=== PATIENT | male | born 1970 | race Caucasian/White ===

== ENCOUNTER 2024-02-07 16:06 | Observation (INO) | payer BC, SELFPAY ==
[2024-02-07] VITALS (11 sets, daily range): BP systolic 120–141; BP diastolic 65–90; BMI 34.7
[2024-02-07 10:43] LABS: % Basophils 0.8 % (0-2); % Eosinophils 2.5 % (0-6); % Immature Granulocytes 0.3 % (0-0.5); % Lymphocytes 30.8 % (20.5-51.1); % Monocytes 8.6 % (1.7-9.3); Absolute Basophils 0.1 10^3/uL (0-0.2); Absolute Eosinophils 0.2 10^3/uL (0-0.7); Absolute Lymphocytes 1.8 10^3/uL (1.2-3.4); Absolute Monocytes 0.5 10^3/uL (0.1-0.6); Absolute Neutrophils 3.4 10^3/uL (1.4-6.5); Hematocrit 40.4 % (39.0-52.0); Hemoglobin 13.7 g/dL (13.0-18.0); Mean Corp Hgb Conc. 33.9 g/dL (33.0-37.0); Mean Corpuscular Hgb 29.6 pg (27.0-31.0); Mean Corpuscular Volume 87.3 fL (80.0-94.0); Mean Platelet Volume 10.2 fL (7.4-10.4); Nucleated Red Blood Cells % 0 % (-); Platelet Count 273 10^3/uL (130-400); Red Blood Cell Count 4.63 10^6/uL (4.70-6.10); Red Cell Dist. Width 13.6 % (11.5-14.5); White Blood Cell Count 5.9 10^3/uL (4.8-10.8)
[2024-02-07 10:52] LABS: ALT (SGPT) 29 U/L (0-50); AST (SGOT) 27 U/L (17-59); Albumin 4.7 g/dl (3.5-5.0); Alkaline Phosphatase 76 U/L (38-126); Blood Urea Nitrogen 17 mg/dl (9-20); Calcium 9.6 mg/dl (8.4-10.2); Carbon Dioxide 29 mmol/L (22-30); Chloride 103 mmol/L (98-107); Estimated Creatinine Clearance > 125 ml/min; Glucose 129 mg/dl (70-99); Potassium 4.5 mmol/L (3.5-5.1); Sodium 140 mmol/L (135-145); Total Bilirubin 1.1 mg/dl (0.2-1.3); Total Protein 7.2 g/dl (6.3-8.2); eGFR > 60.00
--- NOTE | 2024-02-07 10:52 | ED.GENMED ---
History of Present Illness
General
Chief Complaint: Chest Pain
Source: patient
Exam Limitations: none
Time Seen by Provider: 02/07/24 10:32
Nursing documentation reviewed up to this point in time: agreed with
History of Present Illness
History of Present Illness:
Patient with history of hypertension, hypercholesterolemia, and paroxysmal atrial fibrillation on Eliquis, presents to ED secondary to persistent chest pain upon waking up this morning along with shortness of breath. Chest pain described as 'sharp
twinge', nonradiating, associated shortness of breath, without any alleviating or exacerbating factors. Of note, patient has had exertional chest pain over the past 3 weeks. Patient has seen his creel selector and recently had an outpatient stress
test which was 'abnormal'. Patient is scheduled for diagnostic cardiac catheterization at [facility] on Monday. Denies recent travel or surgery. Denies recent illness. There is family history of heart disease. Patient has not taken his
Eliquis this morning.
Past History
Past History
ED Past Medical History: Arrthythmia (PVCs), HTN, Hypercholesterolemia, Psychiatric (Anxiety) and Other (Kidney stones, chronic sinusitis, diverticulosis)
ED Past Surgical History: Urological
Social History
Tobacco: Non-smoker
Alcohol: Occasional
Drug: None
Personal:
Living: with family
Employment: Employed
Family History
Family History: Hypertension, CAD (Brother with stents) and Other (Mother with non-Hodgkin's lymphoma)
Review of Systems
Review of Systems
Allergies reviewed?: Yes
All Other Systems: ROS reviewed and negative except as documented in HPI and ROS
Constitutional: Reports no symptoms
Respiratory: Reports trouble breathing
Cardiac: Reports chest pain
ABD/GI: Reports no symptoms; Denies nausea
Musculoskeletal: Reports no symptoms
Skin: Reports no symptoms
Neurological: Reports no symptoms
Phy Exam
Physical Exam
Physical Exam:
Physical Exam
General: mild distress, not acutely ill. afebrile
Head: nc/at. eomi
Neck: supple. no meningeal signs.
Heart: s1/s2 regular rate and rhythm, no murmur. equal radial pulses.
Lungs: no acute respiratory distress. clear bilaterally
Abdomen: normal bowel sounds. not tender.
Neuro: alert and oriented. no focal neurological deficits
Skin: no rash
Psychiatric: well kept. interactive and cooperative
Extremities: no edema. no calf tenderness.
Scores
Heart Score for Chest Pain Patients
STEMI patient?: No
History: Moderately Suspicious
ECG: Normal
Age: >45 - <65 years
Risk Factors: >/= 3 Risk Factors or History of CAD
Troponin: </= Normal Limit
Heart Score for Chest Pain Patients: 4
Heart Score Risk: 20.3% MACE over next 6 weeks
Course
Orders/Labs/Results
Orders:
Orders
02/07/24 10:00
Electrocardiogram (*1) Urgent
Reason for Study: Chest Pain
02/07/24 10:01
EKG- Treatment ONCE
02/07/24 10:20
Complete Blood Count/With Diff Urgent
Glycohemoglobin (HgbA1c) Urgent
TSH Reflex To Free T4 Urgent
Comment: ADD ON
Troponin I Urgent
02/07/24 10:22
Comprehensive Metabolic Panel Urgent
Magnesium Urgent
Comment: ADD ON
02/07/24 10:52
Add On- LAB Urgent
Tests Added?: magnesium, TSH to reflex free T4
CR Chest Portable - 1 View Urgent
Comment:
Reason For Exam: cp/sob
Reason Study Needs to be Portable: Patient Unstable
02/07/24 10:56
Aspirin Chewable [Low Strength Aspirin] 324 mg PO NOW STA
Nitroglycerin Sublingual [Nitrostat (Sublingual)] 0.4 mg SL NOW STA
02/07/24 11:08
CARDIOLOGY CONSULT Urgent
Consulting Provider: Savage Snow
Was physician already notified: Yes
Reason for consult: CP
02/07/24 14:25
Troponin I Urgent
02/07/24 Dinner
Cholesterol Lowering
At Your Request: Full Participation
02/07/24 15:44
Admit/Transfer Patient As Directed
Co-Sign Provider:
Level of Care: Observation services
Assign to:: IVU
Physician / Group: Victor Manuel
Diagnosis: Chest pain
02/07/24 15:47
PRN Pain Medication Management As Directed
May give lesser potent ordered pain med per pt: Yes
preference::
Protocol:: Medication orders for pain may be administered in a
manner that supports deferring to patient preference
when the pt is:
- Requesting an ordered lesser potent pain medication.
Least to most potent pain medications are defined
as: acetaminophen < NSAID < tramadol < opioids
(morphine, oxycodone, hydromorphone).
- Requesting a lesser dose of the same medication IF
ORDERED.
- Requesting a less intrusive route of administration
if both routes are prescribed by the provider (PO <
IV).
02/07/24 15:49
Code Status As Directed
Resuscitation Status: Full Code
02/07/24 16:00
Add On- LAB Routine
Tests Added?: HgbA1c
02/07/24 17:41
Acetaminophen [Tylenol] 650 mg PO Q6HPRN PRN
02/07/24 17:41
CARDIOLOGY CONSULT Routine
Consulting Provider: Savage Snow
Was physician already notified: Yes
Activity As Directed
Activity Level: As Tolerated
DX Deep Vein Thrombosis Video Routine
02/07/24 18:00
Enoxaparin Sodium [Lovenox] 40 mg SC QPM
02/07/24 20:43
Troponin I Q6H
02/07/24 22:00
Alprazolam [Xanax] 1 mg PO HS
Losartan [Cozaar] 50 mg PO HS
NIFEdipine EXTENDED RELEASE [Procardia Xl (Extended Release)] 30 mg PO HS
Propranolol Extended Release [Inderal LA] 120 mg PO HS
Sertraline HCl [Zoloft] 100 mg PO HS
Cpap [RESP] HS
Patient to use own unit?: Yes
02/08/24 03:16
Troponin I Q6H
02/08/24 Breakfast
NPO
Allow oral meds: Yes
Allow clear liquids: Sips of Clears
02/08/24 08:00
naphazoline-pheniramine [Opcon-A] 1 drop BOTH EYES DAILY
Abnormal Lab Results
02/07/24 02/07/24
10:20 10:22
RBC 4.63 L 10^6/uL
(4.70-6.10)
Glucose 129 H mg/dl
(70-99)
Hemoglobin A1c 5.9 H %
(4.0-5.6)
02/07/24 10:20
02/07/24 10:22
Vital Signs
Initial and Last Documented VS:
Initial Vital Signs
Temp Pulse Resp BP Pulse Ox
97.7 F 68 18 133/74 100
02/07/24 10:10 02/07/24 10:10 02/07/24 10:10 02/07/24 10:10 02/07/24 10:10
Last Documented Vital Signs
Temp Pulse Resp BP Pulse Ox
98.3 F 64 20 126/84 99
02/08/24 11:09 02/08/24 14:00 02/08/24 11:09 02/08/24 14:00 02/08/24 11:20
MDM/Problems Addressed
MDM/Problems Addressed:
History and exam concerning for acute coronary syndrome.
Discussed with on-call cardiology, Dr. Snow, who will come and evaluate the patient.
Received stress echo result from primary creel selector's office, which revealed 1mm ST depression during stress test.
Pt evaluated by - recommends hospitalist admission for likely cardiac catherization tomorrow, after Eliquis washout. Does not recommend heparin protocol at this time.
*EKG
Interpreted by ED Provider?: Yes
EKG Intrepretation Date: 02/07/24
Heart Rate: 65
Rate: normal
Rhythm: sinus
Umbarger: normal axis
Interval: normal interval
*Critical Care Note
Total Time (30-74mins, 75-104mins- exclusive of procedures): Not Applicable
ED Attending Note
-
Portions of this chart may have been created with voice recognition software.� Occasional wrong word or��sound alike� substitutions may have occurred due to the inherent limitations of voice recognition software.
Discharge Plan
Departure
Patient Disposition: Admit
Date of Disposition: 02/07/24
Time of Disposition: 15:04
Presentation/result/management discussed w/ accepting MD/DO: Hospitalist
Discharge Problem:
Chest pain
Interventions
Interventions:
*Risk Screen - Suicide Last Done: 02/07/24 18:38
*General Assessment Last Done: 02/07/24 11:09
*Neglect/Abuse Screening Last Done: 02/07/24 11:09
ED- Fall Risk Assessment Last Done: 02/07/24 11:10
*ED COVID-19 Vaccine History Last Done: 02/07/24 17:55
*Nursing Disposition Last Done: 02/07/24 17:49
ED- Cardiac Assessment Last Done: 02/07/24 11:10
Discharge Date and Time
Discharge Date/Time: 02/07/24 17:50
[2024-02-07 11:00] LABS: Troponin I < 0.012 ng/ml
[2024-02-07] MEDS: LOW STRENGTH ASPIRIN 324 MG PO (11:05)
[2024-02-07] MEDS: NITROSTAT (SUBLINGUAL) 0.4 MG SL (11:06)
[2024-02-07 11:32] LABS: Magnesium 2.1 mg/dl (1.6-2.3)
[2024-02-07 12:14] LABS: TSH Reflex To Free T4 1.14 uIU/ml (0.47-4.68)
--- NOTE | 2024-02-07 14:11 | CON.CAR ---
Addendum entered and electronically signed by Savage Snow MD 02/07/24 16:09:
I saw and examined the patient.
The [facility] Internship's note was reviewed and I agree with the note.
Comment:
GEN: No distress, awake, Ox3
HEENT: supple, anicteric, mmm
LUNGS: CTA, no wheezes/rales
CV: Reg, S1/S2, 1/6 syst LSB, no murmur
ABD: soft, BS+, NT/ND
EXT: No edema
NEURO: Gross non-focal
SKIN: No rash
Plan:
53-year-old male with past medical history of hypertension, hyperlipidemia, obesity, proximal atrial fibrillation/PVCs and borderline diabetes presents with chest pains. He is followed by an outside camp manager at [facility]. Today he had
continued episodes of an ache and discomfort in his neck and chest area. It seemed to occur with rest and last for minutes to hours. He last took Eliquis last night. He is very concerned about his pains.
Stress test done at [facility] Sunday 02/04 revealed chest pain with [address] depression at stage III of a Duy protocol.
Troponin is negative x2.
I had a lengthy discussion with him. We agreed to proceed with cardiac cath in AM. Hold Eliquis.
Add ASA, Cont Propranonol and Losartan
Check Lipids
He remains in sinus rhythm.
Original Note:
Consultation
Consultation Request
Date/Time Consultation Performed: 02/07/24
Requesting Provider: Dr. Calvert
Performing Provider: Penny Lemus PA-C for Dr. Snow
Reason for Consultation: CP
Medical History
-
Chief Complaint: CP
History of Present Illness:
Patient is a 53 yo M with PMH of hypertension, hyperlipidemia, obesity, MARK on CPAP, paroxysmal atrial fibrillation on chronic Eliquis, anxiety, PVCs who presented to with complaints of chest pains. He states he has noticed this over the last
several weeks, in addition to increase in his chronic PVC burden. He was seen by his camp manager, Dr. Champion for this and was ordered a stress test which she completed on 02/05/2024. Exercise stress test was abnormal including chest pain with
exercise and [address] depression inferiorly at peak exercise. Due to this patient was referred for cardiac catheterization which was scheduled at [facility] on Sunday 02/11. Patient states then last evening he developed chest
discomfort with some pains in his left arm, and decided to come to [facility] for cardiac catheterization. He also reports over the last several weeks he has been nauseous and belching. He reports the pain comes on randomly. He states it is
located in different spots throughout his chest. He does seem to have a correlation with exertion. He reports some discomfort in his neck, and states last evening he felt as though he had some discomfort in his jaw. He reports his last Eliquis
dose was 02/05 at 11 PM. Of note when last seen in the office, he had complained about some edema on nifedipine which was started approximately 2 months ago. There was a plan to transition him to verapamil, however patient has not done this yet.
Cardiology consulted for evaluation.
PMH:
Abnormal stress test 02/05/24
Hypertension
Hyperlipidemia
Obesity
MARK on CPAP
Paroxysmal atrial fibrillation
Chronic anticoagulation with Eliquis
PVCs
Prediabetes
Anxiety
Family history of CAD
Past Medical History
Past Medical History: Other (in HPI)
Past Surgical History: Other (prior kidney stone removal. rhinoplasty)
Social History
Tobacco: Non-Smoker
Alcohol: None
Personal:
Living: With Family
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
Family History
Family History: CAD (stent in brother at age 55)
Allergies / Home Medications
Allergy/AdvReac Type Severity Reaction Status Date / Time
Sulfa (Sulfonamide Allergy Severe Rash Verified 02/07/24 10:15
Antibiotics)
[Sulfa(Sulfonamide
Antibiotics)]
decongestants Allergy cause Uncoded 02/07/24 10:15
irritability,heart
palpatations
dust Allergy Unknown Uncoded 02/07/24 10:15
pollen Allergy Unknown Uncoded 02/07/24 10:15
ragweed Allergy Unknown Uncoded 02/07/24 10:15
�Medication �Instructions �Recorded �Confirmed �Type
alprazolam 1 mg tablet (Xanax) 1 mg PO HS Sleep 07/02/09 04/12/22 History
simvastatin 20 mg tablet (Zocor) 20 mg PO HS High cholesterol 07/02/09 04/12/22 History
famotidine 20 mg tablet (Pepcid) 20 mg PO BID #20 tabs 04/12/22 Rx
losartan 50 mg tablet 50 mg PO HS Blood pressure 04/12/22 04/12/22 History
propranolol 120 mg capsule,24 120 mg PO HS Blood pressure 04/12/22 04/12/22 History
hr,extended release
sertraline 100 mg tablet 100 mg PO HS Mental Health/Anxiety 04/12/22 04/12/22 History
benzonatate 100 mg capsule 200 mg (2 x 100 mg) PO TID PRN 07/11/22 Rx
cough #6 caps
benzonatate 200 mg capsule 200 mg PO TID PRN cough #6 caps 07/11/22 Rx
methylprednisolone 4 mg tablets in See Rx Instructions PO .COMPLEX 07/08/23 Rx
a dose pack (Medrol (Sylvester)) #21 ea
Review of Systems
-
History Source: Patient
All other systems: Negative unless noted
Physical Exam
Vital Signs
Temp Pulse Resp BP Pulse Ox
97.7 F 77 16 136/65 95
02/07/24 10:10 02/07/24 11:03 02/07/24 11:03 02/07/24 11:11 02/07/24 11:10
Lab Results
02/07/24 10:20
02/07/24 10:22
Troponin I < 0.012 ng/ml 02/07/24 10:20
Physical Exam
General: No Apparent Distress and Comfortable
HEENT: Normocephalic, Anicteric and Moist Mucous Membranes
Respiratory: Clear and Non Labored Respirations
Cardiac: S1/S2 and Regular Rhythm
GI: Soft, Non Tender, Non Distended and Normal Bowel Sounds
Musculoskeletal: No Clubbing, No Cyanosis and Edema (1+ of B/L LE)
Skin: Warm and Dry
Neuro: AO x 3
Impression / Plan
-
Primary Scaler: Dr. Heath Champion of [facility]
Assessment:
Presentation with chest pains
Negative troponin x1
Abnormal treadmill stress test 02/05/24
Hypertension
Hyperlipidemia
Obesity
MARK on CPAP
Paroxysmal atrial fibrillation
Chronic anticoagulation with Eliquis
PVCs
Anxiety
Family history of CAD
ECHO 07/21/2023: EF 60 to 65%, mild concentric LVH, no significant valvular disease
Treadmill stress test 02/05/2024: Abnormal exercise stress test, chest pain with exercise, EKG evidence of ischemia with [address] depression inferiorly at peak exercise
Plan:
-Patient presents with chest pains. He underwent treadmill stress test 02/05/2024 through his camp manager at [facility]. Results obtained and reviewed which was abnormal as above. He was planned for outpatient cath on Sunday 02/11, however
continued with symptoms and came to [facility] for further evaluation
-Initial troponin negative. Check second troponin
-EKG normal sinus rhythm
-Chest x-ray with no acute cardiopulmonary process
-Last dose of Eliquis 11 PM 02/06/2024
-We discussed option for DC from ER if second trop remains negative with continued plan of OP cath Sunday 02/11 as scheduled, however patient would prefer to complete as inpatient due to ongoing symptoms. plan for cath 02/07. N.p.o. after midnight
-Of note he had started nifedipine approximately 2 months ago and complained at last office visit of some increasing lower extremity edema. Plan was to transition him to verapamil 120 mg ER, however patient had not completed that transition yet.
Remains on propranolol, as did not tolerate Coreg. Also on losartan. Of note, he also felt poorly in the past on spironolactone
-d/w ER
Data Reviewed
-
EKG: Tracing Personally Visualized and interpreted
Radiology: Report Reviewed by me
Medical Tests (Nuc Med, Echo etc): Report Reviewed by me
Labs: Labs Reviewed by me
Old Records: Reviewed
[2024-02-07 14:56] LABS: Troponin I < 0.012 ng/ml
--- NOTE | 2024-02-07 15:52 | HPS.HSE ---
Family Physician
-
Family Physician: Clark Thomas
Chief Complaint
-
Chest pain
History of Present Illness
53-year-old male here with exertional chest pain, shortness of breath. Symptoms have been increasing in frequency lately. Had a abnormal stress test on Monday and is scheduled for cardiac catheterization February 11. He decided to come to the
emergency room for further evaluation as he became more concerned due to increased frequency of chest pain.
Gets intermittent exertional pressure sensation in the middle of his chest on exertion with the feeling of having to belch. Does not take any stomach medications. Denies acid reflux symptoms.
Medical History
Past Medical History
Past Medical History: Reports Other
Additional Past Medical History:
Essential hypertension
Hyperlipidemia
Obstructive sleep apnea
Paroxysmal atrial fibrillation
Anxiety disorder
Impaired fasting glucose
PVCs
Obesity
Nephrolithiasis
Past Surgical History: Reports Other
Additional Past Surgical History:
Rhinoplasty
Kidney stone removal
Social History
Tobacco: Non-smoker
Alcohol: None
Drug: None
Personal:
Living: With Family
Employment: Employed
Family History
Family History: CAD
Allergies / Home Medications
Allergies reflects when Allergies were last updated in [facility].
Home Medications with original date entered in [facility]
Allergy/Medication List:
Allergies
Allergy/AdvReac Type Severity Reaction Status Date / Time
Sulfa (Sulfonamide Allergy Severe Rash Verified 02/07/24 10:15
Antibiotics)
[Sulfa(Sulfonamide
Antibiotics)]
decongestants Allergy cause Uncoded 02/07/24 10:15
irritability,heart
palpatations
dust Allergy Unknown Uncoded 02/07/24 10:15
pollen Allergy Unknown Uncoded 02/07/24 10:15
ragweed Allergy Unknown Uncoded 02/07/24 10:15
Home Medications
alprazolam 1 mg tablet (Xanax) 1 mg PO HS Sleep 07/02/09
simvastatin 20 mg tablet (Zocor) 20 mg PO HS High cholesterol 07/02/09
losartan 50 mg tablet 50 mg PO HS Blood pressure 04/12/22
propranolol 120 mg capsule,24 hr,extended release 120 mg PO HS Blood pressure 04/12/22
sertraline 100 mg tablet 100 mg PO HS Mental Health/Anxiety 04/12/22
apixaban 5 mg tablet (Eliquis) 5 mg PO BID 02/07/24
naphazoline 0.65865 %-pheniramine 0.315 % eye drops (Opcon-A) 1 drp BOTH EYES DAILY 02/07/24
nifedipine 30 mg tablet,extended release 24 hr 30 mg PO HS 02/07/24
Review of Systems
-
History Source: Patient
A 12 point ROS was completed and negative except as noted: Yes
Cardiac: Reports Chest Pain
Physical Exam
Vital Signs
Vital Signs
Temp Pulse Resp BP Pulse Ox
97.7 F 77 16 136/65 95
02/07/24 10:10 02/07/24 11:03 02/07/24 11:03 02/07/24 11:11 02/07/24 11:10
Physical Exam
General: Well Developed, Well Nourished, No Apparent Distress and Comfortable
HEENT: NormoCephalic, Anicteric and Moist mucous membranes
Respiratory: Clear
Cardiac: S1/S2 and Regular Rhythm
Breast: Deferred by me
GI: Soft, Non Tender and Non Distended
Genito-urinary: Deferred by me
Musculoskeletal: No Clubbing, No Cyanosis and No Edema
Skin: Warm and Dry
Neuro: AO x 3
Hematologic/Lymphatic: No Lymphadenopathy
Psych: Calm
Laboratory Results
-
02/07/24 10:20
02/07/24 10:22
Laboratory Results
Total Bilirubin 1.1 mg/dl (0.2-1.3) 02/07/24 10:22
AST 27 U/L (17-59) 02/07/24 10:22
ALT 29 U/L (0-50) 02/07/24 10:22
Alkaline Phosphatase 76 U/L (38-126) 02/07/24 10:22
Troponin I < 0.012 ng/ml 02/07/24 14:25
Impression/Plan
-
Chest pain -occasionally atypical. Abnormal stress test on Monday concerning. Admit to IVU. Consult cardiology. N.p.o. after midnight for catheterization tomorrow. Hold Eliquis. Does not take aspirin at home. Aspirin administered in the
emergency room.
Troponin negative x 2, will trend.
Essential hypertension -stable.
Hyperlipidemia -on simvastatin.
Paroxysmal atrial fibrillation -last dose of Eliquis was 02/05 evening. Hold Eliquis for catheterization.
MARK -resume CPAP nightly and with naps. Patient brought in his own unit.
Impaired fasting glucose -check hemoglobin A1c.
Anxiety disorder -on Xanax nightly. Continue sertraline.
Obesity due to excess calories -weight loss encouraged.
Full code
[2024-02-07] MEDS: LOVENOX 40 MG SC (18:23)
--- NOTE | 2024-02-07 18:35 | PTCARENOTE ---
Pt admitted from the ED. Denies any chest pain or sob. OOB independently. Pt states he is for a cardiac cath in the am.
[2024-02-07] MEDS: ZOLOFT 100 MG PO (20:08)
[2024-02-07] MEDS: INDERAL LA 120 MG PO (20:08)
[2024-02-07] MEDS: COZAAR 50 MG PO (20:08)
[2024-02-07] MEDS: PROCARDIA XL (EXTENDED RELEASE) 30 MG PO (20:11)
[2024-02-07] MEDS: XANAX 1 MG PO (20:11)
--- NOTE | 2024-02-07 20:53 | PTCARENOTE ---
Assumed pt care. Walking rounds completed with previous RN. Pt AAO x 4, denies pain/discomfort at time of assessment. Pt on RA, denies SOB/[place], posterior BS clear/equal. NSR with frequent PVC's on telemetry, heart tones normal, no edema noted,
pulses palpable, denies CP. Up ad mery. PIV present & patent. PM medications administered early as requested by pt - pt reports taking medications ~ 1900 at home & feeling palpitations & anxious. See SEP. Troponin drawn & sent.
[2024-02-07 21:12] LABS: Troponin I < 0.012 ng/ml
[2024-02-08] VITALS (11 sets, daily range): BP systolic 92–143; BP diastolic 64–92
--- NOTE | 2024-02-08 03:20 | PTCARENOTE ---
Pt sleeping between care. VS obtained. Labs drawn & sent. No other changes.
[2024-02-08 04:36] LABS: Troponin I < 0.012 ng/ml
[2024-02-08] MEDS: LOW STRENGTH ASPIRIN 81 MG PO (08:47)
[2024-02-08 10:48] LABS: Glycohemoglobin (HgbA1c) 5.9 % (4.0-5.6)
[2024-02-08] MEDS: NSS 1000 IV (11:15)
--- NOTE | 2024-02-08 12:09 | ITS.CL.CATH ---
[employer] - Catheterization
Cardiac Catheterization
Procedure Report:
LEFT HEART CATHETERIZATION
Date of Procedure: February 08, 2024
Referring: Dr. Avinash Snow
PROCEDURES:
1. Left heart catheterization with coronary and single-plane left ventriculography
INDICATION: Chest pain with recent mildly abnormal stress study. Troponin has serially measured below detectable levels.
ACCESS: Right radial artery, 6 Guyanese sheath
HEMODYNAMICS : (mmHg)
AO (s/d) : 142/83, 110
LV (s/d) : 142/15
LVEDP : 31
CORONARY FINDINGS
DOMINANCE: Right
LEFT MAIN: Normal
LEFT ANTERIOR DESCENDING: The LAD arises normally from the left main and runs in the anterior interventricular groove. The LAD approaches but does not reach the apex. Several small to medium caliber diagonal branches arise from the mid LAD and are
widely patent
CIRCUMFLEX: The circumflex is a medium caliber nondominant vessel giving rise to 4 obtuse marginal branches. Only minor irregularities are present
RIGHT CORONARY ARTERY: The right coronary artery is a large-caliber dominant vessel with only minor irregularities over its course. The PDA is large. The posterolateral branch is large
VENTRICULOGRAPHY: Left ventriculography was performed in an SANCHEZ projection. The digital single-plane left ventricular ejection fraction is estimated at 60%
RADIATION SUMMARY: Fluoro Time (min): 3.6, Dose (mGy): 342, DAP (Gy.cm2) : 25.6
Closure Device: TR band
CONCLUSIONS
1. Nonobstructive coronary disease
2. Preserved left-ventricular systolic function with elevated LVEDP to 31 mmHg
RECOMMENDATIONS
1. Continue aggressive risk modification.
2. Resume apixaban this evening
3. Consider cystoscopy changing nifedipine to hydrochlorothiazide. He should have a renal profile checked in 2 to 4 weeks with plan follow-up with his regular manager system
Copy to: Dr. Heath Champion
--- NOTE | 2024-02-08 12:20 | W.PN.HOSP.TC ---
Today's Communication/Plan
-
Discharge
Assessment / Plan
Assessment / Plan
Gen-AAOx3, NAD
HEENT-NC, AT, anicteric, clear oral mm
Neck-supple
CV-reg, no M, +S1/S2
Lungs-clear B/L
Abd-soft, NT, ND
Ext-no edema
Musculoskeletal-no cyanosis, clubbing
Skin-warm and dry
Neuro-grossly non-focal
Psych-calm, cooperative
Non-cardiac chest pain - card cath today without obstructive disease. Suspect GERD or esophageal spasm or other GI cause of his symptoms. Start empiric protonix 40mg daily, patient agrees.
Essential hypertension -stable. Plan to change nifedipine to Verapamil as was previously decided by his outpatient ball mill operator. Patient is sulfa allergic.
Hyperlipidemia -on simvastatin.
Paroxysmal atrial fibrillation -resume Eliquis tonight.
MARK -resume CPAP nightly and with naps. Patient brought in his own unit.
Impaired fasting glucose -hemoglobin A1c 5.9%.
Anxiety disorder -on Xanax nightly. Continue sertraline.
Obesity due to excess calories -weight loss encouraged.
Full code
Dispo - med stable for discharge this afternoon. Outpatient follow up. Discussed with cardiology.
31 min spent in discharge process.
Anticipated Discharge: Today
Subjective/Interval History
-
Date of Service: February 08, 2024
Patient seen/examined, no complaints.
Objective Data
-
Vital Signs:
Vital Signs
Temp Pulse Resp BP Pulse Ox
98.3 F 73 20 116/78 99
02/08/24 11:09 02/08/24 11:15 02/08/24 11:09 02/08/24 11:15 02/08/24 11:20
I&O
02/07/24 02/08/24 02/09/24
06:59 06:59 06:59
Intake Total 400 / 400
Balance 400 / 400
Review of Systems
-
History Source: Patient
All other systems: Reviewed and negative
--- NOTE | 2024-02-08 12:34 | W.DS.TRANS ---
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
-
Discharge Instructions:
Discharge Diagnosis/Procedures Noncardiac chest pain, cardiac cath
Diet Low Cholesterol,Low Fat
Activity As tolerated
Driving Restrictions No driving for 24 hours
Bathing Restrictions None
Instructions:
Stand-Alone Forms: DC Instructions- Cath/EP Lab
Changes to Home Medications: Yes
Discharge Medications:
DC Medications w/original date entered in [facility]
alprazolam 1 mg tablet (Xanax) 1 mg PO HS Sleep 07/02/09
simvastatin 20 mg tablet (Zocor) 20 mg PO HS High cholesterol 07/02/09
losartan 50 mg tablet 50 mg PO HS Blood pressure 04/12/22
propranolol 120 mg capsule,24 hr,extended release 120 mg PO HS Blood pressure 04/12/22
sertraline 100 mg tablet 100 mg PO HS Mental Health/Anxiety 04/12/22
apixaban 5 mg tablet (Eliquis) 5 mg PO BID 02/07/24
naphazoline 0.14897 %-pheniramine 0.315 % eye drops (Opcon-A) 1 drp BOTH EYES DAILY 02/07/24
Home Medication Changes
Stop nifedipine and start verapamil
Pending Results: No
[2024-02-08] MEDS: LASIX 20 MG IV (12:36)
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
--- NOTE | 2024-02-08 17:21 | PTCARENOTE ---
Pt had a cardiac cath via right radial artery. Radial band removed, no sign of bleeding or hematoma. Pt voiding without difficulty, eating, walking independently. Telemetry and IV device removed. Discharge instructions reviewed with pt regarding
activity and driving restrictions, wound care, medications, reporting cares and concerns and follow up appt's. Very good understanding verbalized. Pt escorted out via wheelchair and discharged to home in [employer] transportation.
== END 2024-02-08 16:35 | disposition home or self-care (01) ==
LOC: IVU 16:06
PROVIDERS: Emergency Medicine; Physician Assistant; ADMITTING PHYSICIAN Hospitalist; CONSULT PHYSICIAN Internal Medicine Cardiovascular Disease; EMERGENCY PHYSICIAN Emergency Medicine; FAMILY PHYSICIAN Internal Medicine
DX: R07.89 Other chest pain (principal); R07.2 Precordial pain; R07.9 Chest pain, unspecified; F41.9 Anxiety disorder, unspecified; I10 Essential (primary) hypertension; E78.00 Pure hypercholesterolemia, unspecified; I48.0 Paroxysmal atrial fibrillation; R73.03 Prediabetes; E66.09 Other obesity due to excess calories; I49.3 Ventricular premature depolarization; G47.33 Obstructive sleep apnea (adult) (pediatric); R94.39 Abnormal result of other cardiovascular function study; M79.602 Pain in left arm; R11.0 Nausea; R73.01 Impaired fasting glucose; I25.10 Atherosclerotic heart disease of native coronary artery without angina pectoris; R21 Rash and other nonspecific skin eruption; J30.1 Allergic rhinitis due to pollen; J30.89 Other allergic rhinitis; R06.02 Shortness of breath; Z82.49 Family history of ischemic heart disease and other diseases of the circulatory system; Z79.01 Long term (current) use of anticoagulants; Z80.7 Family history of other malignant neoplasms of lymphoid, hematopoietic and related tissues; Z87.442 Personal history of urinary calculi; Z68.34 Body mass index [BMI] 34.0-34.9, adult; Z88.2 Allergy status to sulfonamides; Z88.8 Allergy status to other drugs, medicaments and biological substances
CPT/HCPCS: 71045; 80053; 83036; 83735; 84443; 84484; 85025; 93005; 93458; 99285; C1894; G0378; Q9967

== ENCOUNTER 2024-07-19 23:53 | Emergency (ER) | payer BC, SELFPAY ==
[2024-07-20 00:04] VITALS: BP 135/78
[2024-07-20 01:25] VITALS: BMI 33.0
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
== END 2024-07-20 02:10 | disposition home or self-care (01) ==
LOC: EMR 23:53
PROVIDERS: EMERGENCY PHYSICIAN Emergency Medicine; FAMILY PHYSICIAN Internal Medicine
DX: S09.90XA Unspecified injury of head, initial encounter (principal); W22.09XA Striking against other stationary object, initial encounter; I10 Essential (primary) hypertension; Z79.01 Long term (current) use of anticoagulants
CPT/HCPCS: 99284; 70450

== ENCOUNTER 2024-08-31 14:13 | Emergency (ER) | payer BC, SELFPAY ==
[2024-08-31 14:27] VITALS: BP 146/90
[2024-08-31 15:02] LABS: COVID-19 Antigen Negative (Negative)
[2024-08-31 18:31] VITALS: BP 150/88
--- NOTE | 2024-08-31 18:42 | ED.GENMED ---
History of Present Illness
General
Chief Complaint: Cold/Flu/URI Symptoms
Time Seen by Provider: 08/31/24 18:00
History of Present Illness
History of Present Illness:
54-year-old male with history of A-fib on Eliquis, hypertension presenting to the emergency department for cough and congestion. Patient reports symptoms for the past 4 days. Does note subjective fevers and chills and productive cough. Denies any
known sick contacts. Denies chest pain or difficulty breathing. Does note baseline allergies denies abdominal pain or GI symptoms. Denies additional acute medical complaint
Past History
Past History
ED Past Medical History: Arrthythmia (PVCs, Atrial fib), GERD, HTN, Hypercholesterolemia, Psychiatric (Anxiety) and Other (Kidney stones, chronic sinusitis, diverticulosis, PNA, Sleep apnea, IBS, )
ED Past Surgical History: Urological and Other (Nasal surgery)
Social History
Tobacco: Non-smoker
Alcohol: None
Drug: None
Personal:
Living: with family
Employment: Employed
Family History
Family History: Hypertension, CAD (Brother with stents) and Other (Mother with non-Hodgkin's lymphoma)
Phy Exam
Physical Exam
Physical Exam:
General: Well-appearing, no clinical signs of dehydration, nontoxic and in no acute distress
HEENT: protecting airway
Neck: appears supple
CV: Normal heart rate, regular rhythm
Resp: No accessory muscle use, no increased work of breathing, lungs clear to auscultation bilaterally
Abd: No distention
Extremities: No deformities, no swelling
Neuro: alert, no focal neurologic deficit
: deferred
Rectal: deferred
Psych: Normal affect
Skin: Intact
Course
Orders/Labs/Results
Orders:
Orders
08/31/24 14:36
COVID-19 Antigen Urgent
Source: Nasal Swab
Influenza A+B Rapid Molecular Urgent
NATALY Source: Nasal Swab
Specimen Description:
08/31/24 16:24
Chest [CR Chest - 2 Views ] Urgent
Comment:
Reason For Exam: cough, sob
Vital Signs
Initial and Last Documented VS:
Initial Vital Signs
Temp Pulse Resp BP Pulse Ox
98.6 F 83 16 146/90 98
08/31/24 14:27 08/31/24 14:27 08/31/24 14:27 08/31/24 14:27 08/31/24 14:27
Last Documented Vital Signs
Temp Pulse Resp BP Pulse Ox
98.6 F 69 20 150/88 96
08/31/24 14:27 08/31/24 18:31 08/31/24 18:31 08/31/24 18:31 08/31/24 18:31
MDM/Problems Addressed
MDM/Problems Addressed:
54-year-old male with history of A-fib and hypertension presenting to the emergency department for cough and congestion with subjective fevers. Vital signs on arrival significant for mild hypertension.
On exam patient is resting comfortably, no acute discomfort. No increased work of breathing. Lungs are clear to auscultation without any focal abnormal lung sounds. Patient does have some nasal congestion. Ultimately suspect viral URI. Patient
had negative COVID and flu swab. He had a chest x-ray obtained prior to my assessment. No consolidation or pneumonia, there is mention of pneumonitis. Suspect inflammation from viral infection. At this time feel stable for discharge with
outpatient supportive therapy. Will start patient on a steroid pack. Will also prescribe inhaler as needed, and Flonase for congestion. Strict return precautions were communicated and patient verbalized understanding
*Critical Care Note
Total Time (30-74mins, 75-104mins- exclusive of procedures): Not Applicable
ED Attending Note
-
Portions of this chart may have been created with voice recognition software.� Occasional wrong word or��sound alike� substitutions may have occurred due to the inherent limitations of voice recognition software.
Discharge Plan
Departure
Patient Disposition: Home (Routine Discharge)
Date of Disposition: 08/31/24
Time of Disposition: 18:38
Patient with high blood pressure during this ER visit?: Yes
Condition: Good
Discharge Problem:
Acute viral syndrome, Pneumonitis
Instructions: Viral Syndrome (DC), Pneumonitis (DC)
Prescriptions:
New
methylprednisolone [Medrol (Sylvester)] 4 mg tablets,dose pack
See Rx Instructions .ROUTE .COMPLEX Qty: 21 0RF
Rx Instructions:
for 6 days
albuterol sulfate 90 mcg/actuation HFA aerosol inhaler
2 puff inhalation Q6H PRN (Reason: shortness of breath or wheezing) Qty: 8.5 0RF
fluticasone propionate [Flonase Allergy Relief] 50 mcg/actuation spray,suspension
1 spray intranasal BID Qty: 16 0RF
No Action
alprazolam [Xanax] 1 mg Tablet
1 mg PO HS
simvastatin [Zocor] 20 mg Tablet
20 mg PO HS
losartan 50 mg Tablet
50 mg PO HS
sertraline 100 mg Tablet
100 mg PO HS
propranolol 120 mg capsule,extended release 24 hr
120 mg PO HS
Opcon-A 0.52415-8.315 % Drops
1 drp BOTH EYES DAILY
Eliquis 5 mg Tablet
5 mg PO BID
Referrals:
Clark Thomas MD [Family Provider] -
Activity Restrictions/Additional Instructions:
You were seen in the emergency department for cough and congestion
You were found to have negative flu and COVID, however chest x-ray did show inflammation to your lungs, consistent with pneumonitis. You were started on a steroid pack
Please follow-up closely with your primary care physician.
Return to the emergency department for any worsening of your symptoms, or any development of chest pain, difficulty breathing, abdominal pain with persistent vomiting and inability to tolerate food or liquid by mouth (concern for dehydration),
weakness, headache or confusion, fever greater than 100.4, or any additional symptoms that are concerning to you.
Thank you for choosing [facility].
Interventions
Interventions:
*Risk Screen - Suicide Last Done: 08/31/24 14:27
*General Assessment Last Done: 08/31/24 17:54
*Neglect/Abuse Screening Last Done: 08/31/24 14:27
*ED COVID-19 Vaccine History Last Done: 08/31/24 17:54
ED- Pulmonary Assessment Last Done: 08/31/24 17:54
Discharge Date and Time
Print Language: QATARI
== END 2024-08-31 18:46 | disposition home or self-care (01) ==
LOC: EMR 14:13
PROVIDERS: Emergency Medicine; EMERGENCY PHYSICIAN Student in an Organized Health Care Education/Training Program; FAMILY PHYSICIAN Internal Medicine
DX: B34.9 Viral infection, unspecified (principal); J98.4 Other disorders of lung; R09.81 Nasal congestion; Z11.52 Encounter for screening for COVID-19; I48.91 Unspecified atrial fibrillation; I10 Essential (primary) hypertension; E78.00 Pure hypercholesterolemia, unspecified; K21.9 Gastro-esophageal reflux disease without esophagitis; G47.30 Sleep apnea, unspecified; F41.9 Anxiety disorder, unspecified; K58.9 Irritable bowel syndrome, unspecified; J32.9 Chronic sinusitis, unspecified; K57.90 Diverticulosis of intestine, part unspecified, without perforation or abscess without bleeding; Z87.442 Personal history of urinary calculi; Z87.01 Personal history of pneumonia (recurrent); Z79.01 Long term (current) use of anticoagulants; Z88.2 Allergy status to sulfonamides; Z88.8 Allergy status to other drugs, medicaments and biological substances; Z91.048 Other nonmedicinal substance allergy status
CPT/HCPCS: 99283; 71046; 87502; 87811

== ENCOUNTER → 2024-10-28 15:03 | Outpatient (REF) | payer BC, SELFPAY | LOC: HWRAD 15:03 | PROVIDERS: ATTENDING PHYSICIAN Urology; FAMILY PHYSICIAN Internal Medicine | DX: Z87.442 Personal history of urinary calculi (principal) | CPT/HCPCS: 74018; 76775 ==

== ENCOUNTER 2025-06-07 21:45 | Emergency (ER) | payer SELFPAY ==
[2025-06-07 21:47] VITALS: BP 160/90
[2025-06-07 22:42] VITALS: BMI 34.7
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
[2025-06-07] MEDS: TYLENOL 1000 MG PO (22:52)
[2025-06-08 00:15] VITALS: BP 129/76
== END 2025-06-08 00:41 | disposition home or self-care (01) ==
LOC: EMR 21:45
PROVIDERS: EMERGENCY PHYSICIAN Student in an Organized Health Care Education/Training Program
DX: S09.90XA Unspecified injury of head, initial encounter (principal); S13.9XXA Sprain of joints and ligaments of unspecified parts of neck, initial encounter; V43.52XA Car driver injured in collision with other type car in traffic accident, initial encounter; Y92.410 Unspecified street and highway as the place of occurrence of the external cause; I48.91 Unspecified atrial fibrillation; I10 Essential (primary) hypertension; E78.00 Pure hypercholesterolemia, unspecified; G47.30 Sleep apnea, unspecified; K21.9 Gastro-esophageal reflux disease without esophagitis; F41.9 Anxiety disorder, unspecified; J32.9 Chronic sinusitis, unspecified; K58.9 Irritable bowel syndrome, unspecified; Z79.01 Long term (current) use of anticoagulants; Z82.49 Family history of ischemic heart disease and other diseases of the circulatory system
CPT/HCPCS: 99284; 70450; 72125